=== PATIENT | female | born 1995 | race Caucasian/White ===

== ENCOUNTER 2020-01-04 15:01 | Emergency (ER) | payer OTHER ==
--- OUTSIDE RECORDS SUMMARY | 2020-01-04 16:26 | XMS REPORT | Continuity of Care Document ---
:1995 Author Organization [facility] Address [address] [place] [address] Phone Care Team Providers Name Role Phone Ella GONZALES, Anupama Unavailable Unavailable Allergies, Adverse Reactions, Alerts Substance Reaction Status amoxicillin Active Sulfa (Sulfonamide Antibiotics) Active Medications Medication Instructions Dosage Effective Dates Status Comments (start - stop) Depo-Provera 150 IM Q 11-13 weeks - Active mg/mL intramuscular suspension LOPERAMIDE (unknown Not Available - Active strength) RANITIDINE HCL Not Available - Active (unknown strength) OMEPRAZOLE (unknown Not Available - Active strength) SUMATRIPTAN Not Available - Active (unknown strength) MONTELUKAST SODIUM Not Available - Active (unknown strength) DEPO-PROVERA Not Available - No Longer (unknown strength) Active Problems Condition Effective Dates (start - Clinical Status Comments stop) Encounter for oth general cnsl and - advice on contraception Body mass index (BMI) 36.0-36.9, adult Encounter for surveillance of injectable contraceptive Encounter for surveillance of injectable contraceptive Encounter for surveillance of injectable contraceptive Encounter for surveillance of injectable contraceptive Human immunodeficiency virus [HIV] - counseling Encounter for surveillance of injectable contraceptive Body mass index (BMI) 29.0-29.9, adult Encounter for initial prescription of injectable contracep Procedures Procedure Date OFFICE/OUTPATIENT VISIT, EST INJECTION DEPO/CEFTRIAXONE BLOOD PRESSURE Height/Weight OTHER Medical Services Contraceptive Grape Crusher.Svc. Other Grape Crusher.Svc. STI DEPO Results Test Name Date and Time Measure Units Reference Range Abnormal Flag Status Comments No information Advance Directives Directive Yes / No Effective Date File Name No information Encounters Encounter Practice Location Reason(s) Diagnoses Date Provider Providers Description For Visit Copied on Encounter OFFICE/OUTPA [facility] Encounter for Raphaelidis Referring TIENT VISIT, [facility] [place] Control oth general cnsl 0-201 [address]. [address] Provider: DARLENE [facility] Renewal and advice on [address], Anupama Finger (chief contraceptionBod [place], [place], [facility], [facility] complaint) y mass index [address]. s, [address] (BMI) 36.0-36.9, tel:[phone] [address], [place], adultEncounter [address] [place], [place], [address]. [id number], of injectable tel:[phone] [place] contraceptive [phone] tel:[phone] [facility] Encounter for Ella Referring [facility] [place] surveillance of [address]. [address] Provider: [facility] injectable [address], Anupama Finger contraceptive [place], [place], [facility], [facility] [address]. s, [address] tel:[phone] [address], [place], [address] [place], [place], [address]. [id number], tel:[phone] [place] [phone] tel:[phone] sulting [phone] Provider: NURSE OR [facility]. [facility] Encounter for Florencio Referring [facility] [place] surveillance of 6-201 Romy. 620 Provider: [facility] injectable [address], [place] Finger contraceptive [place], [place], Florenciotorrie Marquez [facility], [facility] [address], [place]. [address] tel:[phone] [address], [place], [address] [place], [address]. [id number], tel:[phone] [place] [phone] tel:[phone] sulting [phone] Provider: NURSE [place] [facility] Encounter for [place] Referring [facility] [place] surveillance of [place]. 620 Provider: [facility] injectable [address], Celia Finger contraceptiveHum [place], [place], [place], [facility], 620 an [address], [place]. [address] immunodeficiency tel:[phone], [place], virus [HIV] [address] [place], [place], [place], [address]. [id number], tel:[phone] [place] [phone] tel:[phone] [facility] [phone] Provider: NURSE [place] [facility] Encounter for Borglum Referring [facility] [place] surveillance of [address] [place]. 620 Provider: [facility] injectable [address], Celia Finger contraceptive [place], [place], [place], [facility], [address], [place]. [address] tel:[phone], , [place], [address] [place], [place], [place], [address]. [id number], tel:[phone] [place] [phone] tel:[phone] [facility], [facility] [phone] Provider: NURSE [place] [facility] Body mass index Sep-2 [place]. Referring [facility] [place] (BMI) 29.0-29.9, - [address] Provider: [facility] adultEncounter [address], [place], [place], [address], Florenciotorrie Marquez [facility], 620 prescription of [place]. [address], [place], contracep [place], [place], [address]. [id number], tel:[phone] [place] [phone] tel:[phone] Family History Family Member Diagnosis Age At Onset Mother Osteoporosis 53 1st degree relative No hx of venous thromboembolism 1st degree relative No hx of cancer of breast, colon, endometrium or ovary 1st degree relative No hx of coronary heart disease (female <65, male <55) Immunizations Vaccine Date Status Comments No information Payers Payer name Insurance type Covered green party ID Authorization(s) Charlette Forman [facility] [id number] Social History Type Description Quantity Date Captured Comments Alcohol Use Details Unknown Caffeine Use Details Unknown Tobacco Use Status Current non-smoker Smoking Status Never smoker Non-Smoking Tobacco : No Details Available : No Details Available 2018 Use Details Sex Female Vital Signs Date / Height Weight BMI Pulse Blood Temperature Respiratory Body Head BMI Pulse Inhaled Time: Rate Pressure Rate Surface Circumference percentile Ox Ox Area 66.00 224.00 36.1 156/100 -2019 in lbs 5 mm[Hg] 2:49 kg/m PM eter (2) 140/92 -2019 mm[Hg] 3:05 PM Chief Complaint And Reason For Visit Most recent encounter only, dated '11/11/2019 14:30'. Control Renewal (chief complaint) Reason For Referral Reason For Referral No information Plan Of Treatment Date Type Action Status No information History Of Present Illness Encounter Date Complaint History Of Present Illness No information Functional Status Date Functional Assessment No information Medications Administered Medication Instructions Dosage Effective Dates (start - stop) Status Comments No information Instructions Date Instruction Additional Information No information Assessments Type Assessment Date assessment Encounter for ot general cnsl and advice on contraception 2018 assessment Body mass index (BMI) 36.0-36.9, adult assessment Encounter for surveillance of injectable contraceptive Goals Health Concern Goal Type Priority Status Date No information Medical Equipment Description Device Wilmore Device Identifier Effective Dates (start - stop ) Status No information Mental Status Date Cognitive Assessment Normal Orientation Health Concerns Observation Date No information Concern Status Date No information
[2020-01-04 16:57] VITALS: BP 141/80
--- NOTE | 2020-01-04 17:13 | UC ---
Complaint Female HPI - HPI Summary HPI Summary: 24 yo advised today that her partner had a positive test for gonorrhea at an emergency room in [place]; swabs were done at the time of an acute generalized illness. Last sexually active with her partner about 4 weeks ago. Uses depoprovera for contraception. [facility] and declines a pelvic exam today due to past bad experiences. She also declines testing. She is amenorrhiec on depo, has had no spotting, abdominal pain, cramping, vaginal discharge. Mild sore throat today is attributable to chronic allergies and choking on some soup today. No fever. No history of STI's in the past. HIV and further testing is advised. - History Of Current Complaint Chief Complaint: UCSTDScreening Stated Complaint: STI TESTING Time Seen by Provider: 01/04/20 17:02 Hx Obtained From: Patient Hx Last Menstrual Period: months ?: No Onset/Duration: Other - asymptomatic Severity Currently: None Pain Intensity: 1 Character: Not Applicable Aggravating Factor(s): Nothing Alleviating Factor(s): Nothing Associated Signs And Symptoms: Positive: Negative - Allergies/Home Medications Allergies/Adverse Reactions: Allergies Allergy/AdvReac Type Severity Reaction Status Date / Time amoxicillin Allergy Severe hives, rash Verified 01/04/20 16:58 Sulfa (Sulfonamide Allergy Severe hives, rash Verified 01/04/20 16:58 Antibiotics) Home Medications: Home Medications Loperamide CAP* [Imodium CAP*] 1 tab PO TID 01/04/20 [History Confirmed 01/04/20 ] Montelukast Sodium TAB* [Singulair 5 mg TAB*] 1 tab PO DAILY 01/04/20 [History Confirmed 01/04/20] Ranitidine TAB (NF) [Zantac TAB (NF)] 1 tab PO DAILY PRN 01/04/20 [History Confirmed 01/04/20] medroxyPROGESTERone ACETATE* [DEPO-Provera*] 1 syringe IM SEE INSTRUCTIONS 01/04 [History Confirmed 01/04/20] PMH/Surg Hx/FS Hx/Imm Hx Previously Healthy: Yes - overweight Respiratory History: Asthma - remote; hx of severe seasonal allergies GI/ History: Gastroesophageal Reflux - Surgical History Surgical History: Yes Surgery Procedure, Year, and Place: Brain surgery, cyst rupture age 16. - Family History Known Family History: Positive: Non-Contributory - Social History Occupation: Employed Full-time Alcohol Use: Occasionally Substance Use Type: None Smoking Status (MU): Never Smoked Tobacco Review of Systems All Other Systems Reviewed And Are Negative: Yes Constitutional: Positive: Negative Skin: Positive: Negative Eyes: Positive: Negative ENT: Positive: Sore Throat - chronic, Sinus Congestion Respiratory: Positive: Negative Cardiovascular: Positive: Negative Gastrointestinal: Positive: Negative Genitourinary: Positive: Negative, Other - due for pap smear and [facility] Motor: Positive: Negative Neurovascular: Positive: Negative Musculoskeletal: Positive: Negative Neurological/Mental Status: Positive: Negative Psychological: Positive: Negative Is Patient Immunocompromised?: No Physical Exam Triage Information Reviewed: Yes Appearance: Well-Appearing, No Pain Distress, Obese Vital Signs: Initial Vital Signs Temp 99.5 F 01/04/20 16:48 Pulse 106 01/04/20 16:48 Resp 16 01/04/20 16:48 BP 141/80 01/04/20 16:48 Pulse Ox 97 01/04/20 16:48 ENT: Positive: Pharyngeal erythema - posterior. No tonsillar enlargement or exudate. Neck: Positive: Supple, Nontender, No Lymphadenopathy Respiratory: Positive: Lungs clear, Normal breath sounds Cardiovascular: Positive: RRR, No Murmur Abdomen Description: Positive: Nontender, No Organomegaly, Soft Musculoskeletal Exam: Normal Neurological Exam: Normal Psychological Exam: Normal Skin Exam: Normal Complaint Female Dx - Course Course Of Treatment: Given hx of exposure to gonorrhea, will initiate treatment for suspected illness. We discussed assessment for STI's and she declines additional testing aside from urine test for Chlamydia and Gonorrhea. Ceftriaxone and azithromycin given today. Reviewed hx of penicillin allergy--mainifeted as a rash without symptoms of respiratory distress. - Differential Dx/Diagnosis Differential Diagnosis/HQI/PQRI: Sexually Transmitted Disease Provider Diagnosis: STI (sexually transmitted infection) Discharge ED - Sign-Out/Discharge Documenting (check all that apply): Patient Departure All imaging exams completed and their final reports reviewed: No Studies - Discharge Plan Condition: Stable Disposition: HOME Patient Education Materials: Gonorrhea (ED) Referrals: No Primary Care Phys,NOPCP [Primary Care Provider] - Additional Instructions: You have been treated today based on your reported exposure to gonorrhea. Treatment included Ceftriaone 250mg by injection and oral azithromycin 1000mg. PLEASE ABSTAIN FROM INTERCOURSE FOR ONE WEEK POST TREATMENT. [facility] AND FOLLOW UP TREATMENT DISCUSSED. - Billing Disposition and Condition Condition: STABLE Disposition: Home
[2020-01-04] MEDS ORDERED: Lidocaine 1% MPF ** 5 ML VIAL IM ONE (17:19)
[2020-01-04] MEDS ORDERED: cefTRIAXone VIAL(*) 250 MG VIAL IM ONE (17:19)
[2020-01-04] MEDS ORDERED: Azithromycin TAB* 250 MG PO ONE (17:21)
[2020-01-06 12:42] LABS: Chlamydia trachomatis NAA Negative (Negative); Neisseria gonorrhoeae (GC) NAA Negative (Negative)
== END 2020-01-04 18:02 | disposition home or self-care (01) ==
LOC: UCEAST 15:01
DX: A64 Unspecified sexually transmitted disease (principal); J45.909 Unspecified asthma, uncomplicated; K21.9 Gastro-esophageal reflux disease without esophagitis; Z79.899 Other long term (current) drug therapy; Z88.0 Allergy status to penicillin; Z88.2 Allergy status to sulfonamides
CPT/HCPCS: 87491; 87591; 96372; 99202; A9270-GY; G0463; J0696